=== PATIENT | female | born 1985 | race Caucasian/White ===

== ENCOUNTER 2017-02-16 17:09 | Emergency (ER) | payer MEDICAID ==
--- NOTE | ~2017-02-16 | CR7 ---
[facility] A Service of [facility] & [facility] RADIOLOGY TEXT RESULTS PATIENT: CHEL MCGOWAN LOCATION: [facility] : [birth year] UNIT #: [id number] AGE: [address]: Melva Kebede MD SEX: F ORDER DR: [id number] [facility] [address] [place], [place] [address] [id number] E MR#: [id number] Acc #: [id number] NAME: CHEL MCGOWAN : 1985 SEX: F STUDY DATE/TIME: 02/16/2017 21:56 UNIT: [facility] ROOM: STUDY DESCRIPTION: CR Abdomen Single AP View Attending Physician: Melva Kebede M.D. Ordering Physician: Melva Kebede M.D. Primary Care Physician: Brina Ceballos M.D. MEDICAL IMAGING REPORT This report is preliminary unless electronic signature is present EXAM Abdomen 02/16/2017 HISTORY 32-year-old female in the ED complaining of 10-day history of lower abdomen pain with constipation. Some nausea and vomiting. TECHNIQUE AP supine radiographs of the abdomen and pelvis. FINDINGS Bowel gas pattern is normal with no evidence of bowel obstruction or adynamic ileus. No radiopaque abdominal calculi. Presumed vascular calcification in the pelvis on the left. The patient has a reported history of constipation, but no large volume stool was present. IMPRESSION Negative abdomen. Dictated by... Charlie Trujillo M.D. THIS IS AN ELECTRONICALLY VERIFIED REPORT Charlie Trujillo M.D. at 02/17/2017 9:56 PM DENAE/charbel TD: 02/17/2017 08:21 JOB #: [id number] MEDICAL IMAGING REPORT Page 1 of 1 COPY
[~2017-02-16 17:09] MED LIST: BACTRIM DS TABL1 TA1 PO; BACTRIM DS TABL1 TA2 PO; FLEXERIL10 MG PO; LODINE300 M1 PO; NAPROSYN500 MG PO; PEPCID PO; PHENERGAN25 MG PO; PRILOSEC20 MG PO
== END 2017-02-16 23:27 | disposition home or self-care (01) ==
LOC: CED 17:09
DX: K59.00 Constipation, unspecified (principal); Z79.899 Other long term (current) drug therapy
CPT/HCPCS: 74000; 99284

== ENCOUNTER 2017-03-27 21:30 | Emergency (ER) | payer MEDICAID | END 2017-03-27 21:58 | disposition home or self-care (01) | LOC: CED 21:30 | DX: T14.8 Other injury of unspecified body region (principal); F17.200 Nicotine dependence, unspecified, uncomplicated; Z79.899 Other long term (current) drug therapy | CPT/HCPCS: 99282 ==

== ENCOUNTER 2017-05-25 20:13 | Emergency (ER) | payer MEDICAID | END 2017-05-25 21:20 | disposition left against medical advice (07) | LOC: CED 20:13 | DX: Z53.21 Procedure and treatment not carried out due to patient leaving prior to being seen by health care provider (principal) ==